=== PATIENT | female | born 1985 ===

== ENCOUNTER 2019-04-25 05:39 | Inpatient (IN) | payer MEDICAID ==
[2019-04-25] MEDS ORDERED: Citric Acid/Sodium Citrate Solution 30 ML Cup PO ONE (05:55)
[2019-04-25] MEDS ORDERED: Sodium Chloride 0.9% 10 ML SDV IV PRN (05:55)
[2019-04-25] MEDS ORDERED: Sodium Chloride 0.9% 10 ML Syringe FLUSH PRN (05:55)
[2019-04-25] MEDS ORDERED: Sodium Chloride 0.9% 2.5 ML Syringe FLUSH PRN (05:55)
[2019-04-25] MEDS ORDERED: ceFAZolin 2 GM in Premix Bag 1 BAG IV ONE (05:55)
[2019-04-25] MEDS ORDERED: Oxytocin/0.9 % Sodium Chloride 30 UNIT/500 ML BAG IV SCH (06:00)
[2019-04-25] MEDS: Lactated Ringers 1,000 ML IV SCH ×3 (06:10→07:33)
[2019-04-25] MEDS ORDERED: Morphine PF 10 MG/10 ML SDV ONE (06:58)
[2019-04-25] MEDS ORDERED: ePHEDrine 50 MG/ML SDV ONE (06:58)
[2019-04-25] MEDS ORDERED: Oxytocin 10 Units/1 ML SDV ONE (06:58)
[2019-04-25] MEDS ORDERED: fentaNYL 100 MCG/2 ML SDV ONE ×2 (06:58→09:25)
--- NOTE | 2019-04-25 07:35 | PCM.PREANE ---
Preanesthetic Assessment - Anesthesia/Transfusion/Family Hx Anesthesia History: Prior Anesthesia Reaction Other Type of Anesthesia Reaction Comment: had a blood clot in her back from the Epidural-took anticoagulants x24 hrs Family History of Anesthesia Reaction: No Transfusion History: Prior Transfusion Without Reaction - Review of Systems General: No Symptoms Pulmonary: No Symptoms Cardiovascular: No Symptoms Gastrointestinal: No Symptoms Neurological: No Symptoms Other: Reports: None - Physical Assessment Height: 5 ft 5 in Weight: 91.626 kg ASA Class: 2 Mental Status: Alert & Oriented x3 Airway Class: Mallampati = 2 (tongue stud) Dentition: Reports: Normal Dentition ROM/Head Extension: Full Lungs: Clear to Auscultation, Normal Respiratory Effort Cardiovascular: Regular Rate, Regular Rhythm - Lab Values: Laboratory Last Values WBC 12.76 K/uL (4.0-11.0) H 04/25/19 06:10 RBC 3.63 M/uL (4.30-5.90) L 04/25/19 06:10 Hgb 11.6 g/dL (12.0-16.0) L 04/25/19 06:10 Hct 34.9 % (36.0-46.0) L 04/25/19 06:10 MCV 96.1 fL (80.0-98.0) 04/25/19 06:10 MCH 32.0 pg (27.0-32.0) 04/25/19 06:10 MCHC 33.2 g/dL (31.0-37.0) 04/25/19 06:10 RDW Std Deviation 47.3 fl (28.0-62.0) 04/25/19 06:10 RDW Coeff of Cleve 14 % (11.0-15.0) 04/25/19 06:10 Plt Count 217 K/uL (150-400) 04/25/19 06:10 MPV 10.60 fL (7.40-12.00) 04/25/19 06:10 Nucleated RBC % 0.0 /100WBC 04/25/19 06:10 Nucleated RBCs # 0 K/uL 04/25/19 06:10 Blood Type O POSITIVE 04/25/19 06:10 Antibody Screen NEGATIVE 04/25/19 06:10 - Allergies Allergies/Adverse Reactions: Allergies Allergy/AdvReac Type Severity Reaction Status Date / Time bee venom protein (honey bee) Allergy Other Verified 08/20/19 07:01 povidone-iodine Allergy Rash Verified 04/21/19 12:55 [From Betadine] soap [From Betadine] Allergy Rash Verified 04/21/19 12:55 - Blood Blood Available: No - Anesthesia Plan Pre-Op Medication Ordered: None - Acknowledgements Anesthesia Type Planned: Spinal Pt an Appropriate Candidate for the Planned Anesthesia: Yes Alternatives and Risks of Anesthesia Discussed w Pt/Guardian: Yes Pt/Guardian Understands and Agrees with Anesthesia Plan: Yes PreAnesthesia Questionnaire Gastrointestinal History: Reports: Other (See Below) Other Gastrointestinal History: heartburn during [employer] History: Reports: Musculoskeletal History: Reports: Fracture Other Musculoskeletal History: hx of fx right ankle and clavicle Psychiatric History: Reports: Anxiety, Depression Other Psychiatric History: no anxiety medication for 2 years Endocrine/Metabolic History: Reports: Obesity/BMI 30+ Hematologic History: Reports: Anemia - Past Surgical History HEENT Surgical History: Reports: Other (See Below) Other HEENT Surgeries/Procedures: hx of facial reconstruction after a dog bite as a child Female Surgical History: Reports: Section Musculoskeletal Surgical History: Reports: ORIF Other Musculoskeletal Surgeries/Procedures:: hx of ORIF right ankle- hardware removed - SUBSTANCE USE Smoking Status *Q: Current Every Day Smoker Tobacco Use Within Last Twelve Months: Cigarettes Recreational Drug Use History: No - HOME MEDS Home Medications: Home Meds Iron Polysaccharides Complex [Ferrex 150] 150 mg PO DAILY 04/21/19 [History] PNV95/Ferrous Fumarate/FA [ Tablet] 1 tab PO DAILY 04/21/19 [History] Calcium Carbonate [Tums] 500 mg PO PRN 04/25/19 [History] Ranitidine HCl [Ranitidine] 04/25/19 [History] - CURRENT (IN HOUSE) MEDS Current Meds: Current Medications Lactated Ringer's (Ringers, Lactated) 1,000 mls @ 500 mls/hr IV BOLUS JOSE Last Admin: 04/25/19 07:25 Dose: 999 mls/hr Oxytocin/Sodium Chloride (Oxytocin 30 Unit/500 Ml-Ns) 30 unit in 500 mls @ 250 mls/hr IV TITRATE JOSE Sodium Chloride (Saline Flush) 10 ml FLUSH ASDIRECTED PRN PRN Reason: Keep Vein Open Sodium Chloride (Saline Flush) 2.5 ml FLUSH ASDIRECTED PRN PRN Reason: Keep Vein Open Sodium Chloride (Normal Saline) 10 ml IV ASDIRECTED PRN PRN Reason: IV Use Discontinued Medications Citric Acid/Sodium Citrate (Bicitra Solution) 30 ml PO ONETIME ONE Stop: 04/25/19 05:56 Ephedrine Sulfate (Ephedrine Sulfate) Confirm Administered Dose 50 mg .ROUTE .STK-MED ONE Stop: 04/25/19 06:59 Fentanyl (Sublimaze) Confirm Administered Dose 100 mcg .ROUTE .STK-MED ONE Stop: 04/25/19 06:59 Cefazolin Sodium/Dextrose 2 gm (/ Premix) 50 mls @ 100 mls/hr IV ONETIME ONE Stop: 04/25/19 06:24 Morphine Sulfate (Duramorph Pf) Confirm Administered Dose 10 mg .ROUTE .STK-MED ONE Stop: 04/25/19 06:59 Oxytocin (Pitocin) Confirm Administered Dose 30 unit .ROUTE .STK-MED ONE Stop: 04/25/19 06:59
[2019-04-25] MEDS ORDERED: ceFAZolin 1 GM Vial ONE (08:07)
[2019-04-25] MEDS ORDERED: Acetaminophen/oxyCODONE 325-5 MG Tab PO PRN ×2 (08:15→09:15)
[2019-04-25] MEDS ORDERED: Nalbuphine 10 MG/1 ML Vial IVPUSH PRN (08:15)
[2019-04-25] MEDS ORDERED: Oxytocin/0.9 % Sodium Chloride 30 UNIT/500 ML BAG ONE (08:33)
[2019-04-25] MEDS ORDERED: Octyl 2-Cyanoacrylate 1 Tube ONE (09:14)
[2019-04-25] MEDS ORDERED: Bisacodyl 10 MG Supp RECTAL PRN (09:15)
[2019-04-25] MEDS ORDERED: Lanolin 100% Cream 7 GM Tube TOP PRN (09:15)
[2019-04-25] MEDS ORDERED: diphenhydrAMINE 50 MG/ML SDV IVPUSH PRN (09:15)
[2019-04-25] MEDS ORDERED: Ondansetron 4 MG/2 ML SDV IVPUSH PRN (09:15)
[2019-04-25] MEDS ORDERED: Lactated Ringers 1,000 ML IV SCH (09:15)
--- NOTE | 2019-04-25 09:20 | PCM.OPNOTE ---
- General Post-Op/Procedure Note Date of Surgery/Procedure: 04/25/19 Operative Procedure(s): Repeat Lower transverse Findings: Live male delivered at 830am , 9/9 weight pending Pre Op Diagnosis: Previous , Desires repeat Post-Op Diagnosis: same Anesthesia Technique: Spinal Primary Surgeon: Alicia Vegas Slurry Tank Operator: Julianna Lara Fluid Replacement, Intraop: 3,100 Output, Urine Amount: 250 EBL in mLs: 500 Complications: None Condition: Good
[2019-04-25] MEDS ORDERED: Ketorolac 30 MG/ML SDV ONE (09:22)
[2019-04-25] MEDS: Ketorolac 30 MG/ML SDV IVPUSH SCH ×3 (09:50→20:56)
--- NOTE | 2019-04-25 10:14 | PCM.POSTAN ---
POST ANESTHESIA ASSESSMENT - MENTAL STATUS Mental Status: Alert, Oriented - VITAL SIGNS Vital Signs: Last Vital Signs Temp 36.3 C 04/25/19 09:30 Pulse 84 04/25/19 10:05 Resp 15 04/25/19 10:05 BP 139/86 04/25/19 10:05 Pulse Ox 96 04/25/19 10:05 - RESPIRATORY Respiratory Status: Respiratory Rate WNL, Airway Patent, O2 Saturation Stable - CARDIOVASCULAR CV Status: Pulse Rate WNL, Blood Pressure Stable - GASTROINTESTINAL GI Status: No Symptoms - PAIN Pain Score: 5 (being treated PRN - patient satisfied at this time) - POST OP HYDRATION Hydration Status: Adequate & Stable
[2019-04-25] MEDS: fentaNYL 100 MCG/2 ML SDV IVPUSH PRN ×2 (12:17→17:09)
[2019-04-25] MEDS: Docusate Sodium 100 MG Cap PO SCH (20:55)
--- NOTE | 2019-04-26 00:20 | OR ---
SURGEON: TAO BOND DATE OF PROCEDURE: 04/25/2019 PREOPERATIVE DIAGNOSIS: A 34-year-old, G4, P2-0-1-2 at 39 weeks, desiring repeat . POSTOPERATIVE DIAGNOSIS: A 34-year-old, G4, P2-0-1-2 at 39 weeks, desiring repeat . PROCEDURE PERFORMED: Repeat Lower segment transverse delivery. ESTIMATED BLOOD LOSS: 500. IV FLUIDS: 3100. URINE OUTPUT: 250. NOTES AND FINDINGS: A live male delivered at 8:30 a.m. scores were 9 and 9. Weight is 3640 g. Very thin lower uterine segment BRIEF HISTORY: She is 39 weeks and 4 days with history of previous delivery, desired a repeat delivery. She was explained the risks, benefits, and alternative procedures. She decided to proceed with . DESCRIPTION OF PROCEDURE: The patient was taken to the operating room where spinal anesthesia was performed without difficulty. She was prepared and draped in the dorsal supine position with a leftward tilt. A Pfannenstiel skin incision was made with the scalpel and carried down to the fascia with the Bovie. The fascia was incised and extended upwards and laterally. The fascia was from the rectus muscle down to the level of the pubic symphysis. The lower uterine segment was identified, which was extremely thin. The Tamir retractor was placed and the lower uterine incision was made and the baby was in cephalic position was delivered without difficulty. The lower uterine segment was then closed with 0 Vicryl in a continuous fashion. Bleeding was noted with some tear in the lower uterine segment. This was apposed again with 2- 0 Vicryl. Hemostasis was noted. Surgicel was placed in the lower uterine segment on the incision. Then, the rectus muscle was then apposed and gutters were cleaned. There was normal uterus and tubes and ovaries that was noted. The Tamir retractor was removed. After the rectus was approximated, the fascia was closed with 0 Vicryl in a continuous fashion. The skin was closed with 3-0 Monocryl on a [place] needle. All instruments were correct x2. The patient tolerated the procedure well and was taken to Labor and Delivery room in stable condition. JOSE / GILLIAN /[id number] MTDD
[2019-04-26] MEDS: Ketorolac 30 MG/ML SDV IVPUSH SCH ×2 (03:54→09:45)
--- NOTE | 2019-04-26 07:46 | PCM.PNPP ---
- General Info Date of Service: 04/26/19 Functional Status: Reports: Pain Controlled, Tolerating Diet, Ambulating, Urinating, Incentive Spirometry - Review of Systems General: Reports: No Symptoms. Denies: Fever, Chills HEENT: Reports: No Symptoms. Denies: Headaches Pulmonary: Reports: No Symptoms. Denies: Shortness of Breath Cardiovascular: Reports: No Symptoms. Denies: Chest Pain, Palpitations Gastrointestinal: Reports: Abdominal Pain (mild incisional pain. ) Genitourinary: Reports: No Symptoms. Denies: Dysuria Musculoskeletal: Reports: No Symptoms Skin: Reports: No Symptoms Neurological: Reports: No Symptoms Psychiatric: Reports: No Symptoms - General Info Date of Service: 04/26/19 - Patient Data Vital Signs - Most Recent: Last Vital Signs Temp 97.6 F 04/26/19 04:00 Pulse 88 04/26/19 06:00 Resp 16 04/26/19 06:00 BP 129/73 04/26/19 04:00 Pulse Ox 96 04/26/19 06:00 Weight - Most Recent: 202 lb I&O - Last 24 Hours: Intake & Output 04/25/19 04/26/19 04/26/19 22:59 06:59 14:59 Intake Total 628 Output Total 700 1500 Balance -72 -1500 Lab Results - Last 24 Hours: Laboratory Results - last 24 hr 04/26/19 Range/Units 06:07 Hgb 9.4 L (12.0-16.0) g/dL Hct 28.7 L (36.0-46.0) % Med Orders - Current: Current Medications Bisacodyl (Dulcolax) 10 mg RECTAL ONETIME PRN PRN Reason: Constipation Diphenhydramine HCl (Benadryl) 25 mg IVPUSH Q6H PRN PRN Reason: Itching or Nausea Docusate Sodium (Colace) 100 mg PO BID JOSE Last Admin: 04/25/19 20:55 Dose: 100 mg Emollient Ointment (Lansinoh Hpa) 0 gm TOP ASDIRECTED PRN PRN Reason: Sore Nipples Last Admin: 04/25/19 22:53 Dose: 1 tube Lactated Ringer's (Ringers, Lactated) 1,000 mls @ 500 mls/hr IV BOLUS JOSE Last Admin: 04/25/19 07:33 Dose: 999 mls/hr Oxytocin/Sodium Chloride (Oxytocin 30 Unit/500 Ml-Ns) 30 unit in 500 mls @ 250 mls/hr IV TITRATE [facility] Lactated Ringer's (Ringers, Lactated) 1,000 mls @ 125 mls/hr IV ASDIRECTED [facility] Last Admin: 04/25/19 11:34 Dose: 125 mls/hr Ibuprofen (Motrin) 800 mg PO Q8H PRN PRN Reason: mild pain or fever Ketorolac Tromethamine (Toradol) 30 mg IVPUSH Q6H [facility] Stop: 04/26/19 09:16 Last Admin: 04/26/19 03:54 Dose: 30 mg Nalbuphine HCl (Nubain) 2.5 mg IVPUSH Q3H PRN PRN Reason: Pruritis Stop: 04/26/19 08:15 Ondansetron HCl (Zofran) 4 mg IVPUSH Q4H PRN PRN Reason: Nausea/Vomiting Oxycodone/Acetaminophen (Percocet 325-5 Mg) 1 tab PO ONETIME PRN PRN Reason: Pain (moderate 4-6) Oxycodone/Acetaminophen (Percocet 325-5 Mg) 1 tab PO Q4H PRN PRN Reason: Pain (moderate 4-6) Last Admin: 04/26/19 05:42 Dose: 1 tab Oxycodone/Acetaminophen (Percocet 325-5 Mg) 2 tab PO Q4H PRN PRN Reason: Pain (moderate 4-6) Sodium Chloride (Saline Flush) 10 ml FLUSH ASDIRECTED PRN PRN Reason: Keep Vein Open Sodium Chloride (Saline Flush) 2.5 ml FLUSH ASDIRECTED PRN PRN Reason: Keep Vein Open Sodium Chloride (Normal Saline) 10 ml IV ASDIRECTED PRN PRN Reason: IV Use Discontinued Medications Cefazolin Sodium (Ancef) Confirm Administered Dose 2 gm .ROUTE .STK-MED ONE Stop: 04/25/19 08:08 Citric Acid/Sodium Citrate (Bicitra Solution) 30 ml PO ONETIME ONE Stop: 04/25/19 05:56 Last Admin: 04/25/19 07:34 Dose: 30 ml Ephedrine Sulfate (Ephedrine Sulfate) Confirm Administered Dose 50 mg .ROUTE .STK-MED ONE Stop: 04/25/19 06:59 Fentanyl (Sublimaze) Confirm Administered Dose 100 mcg .ROUTE .STK-MED ONE Stop: 04/25/19 06:59 Fentanyl (Sublimaze) Confirm Administered Dose 100 mcg .ROUTE .STK-MED ONE Stop: 04/25/19 09:26 Fentanyl (Sublimaze) 50 mcg IVPUSH Q5M PRN PRN Reason: Pain Last Admin: 04/25/19 17:09 Dose: 50 mcg Cefazolin Sodium/Dextrose 2 gm (/ Premix) 50 mls @ 100 mls/hr IV ONETIME ONE Stop: 04/25/19 06:24 Last Admin: 04/25/19 07:38 Dose: 100 mls/hr Oxytocin/Sodium Chloride (Oxytocin 30 Unit/500 Ml-Ns) Confirm Administered Dose 30 unit in 500 mls @ as directed .ROUTE .STK-MED ONE Stop: 04/25/19 08:34 Ketorolac Tromethamine (Toradol) Confirm Administered Dose 30 mg .ROUTE .STK- MED ONE Stop: 04/25/19 09:23 Morphine Sulfate (Duramorph Pf) Confirm Administered Dose 10 mg .ROUTE .STK-MED ONE Stop: 04/25/19 06:59 Octyl Cyanoacrylate (Dermabond Advance) Confirm Administered Dose 1 applic .ROUTE .STK-MED ONE Stop: 04/25/19 09:15 Last Admin: 04/25/19 08:40 Dose: 1 applic Oxytocin (Pitocin) Confirm Administered Dose 30 unit .ROUTE .STK-MED ONE Stop: 04/25/19 06:59 - Interaction Infant Disposition, : [place] in Room with Family Interaction: Unable to Hold Infant at this Time Infant Feeding: Attempted ; Nursed Fair/Poor Support Person: Friend - Recovery Exam Fundal Tone: Firm Fundal Level: 2 Fingerbreadths Below Umbilicus Fundal Placement: Midline Lochia Amount: Scant Lochia Color: Rubra/Red Perineum Description: Intact, Minimal Bruising/Swelling Episiotomy/Laceration: None Bladder Status: Voiding Urinary Elimination: Voided - Exam General: Alert, Oriented HEENT: Pupils Equal Neck: Supple Lungs: Clear to Auscultation, Normal Respiratory Effort Cardiovascular: Regular Rate, Regular Rhythm GI/Abdominal Exam: Normal Bowel Sounds, Soft, Non-Tender, No Organomegaly, No Distention, No Abnormal Bruit, No Mass, Pelvis Stable Extremities: Normal Inspection, Normal Range of Motion, Non-Tender, No Pedal Edema, Normal Capillary Refill Skin: Warm, Dry, Intact Wound/Incisions: Healing Well Neurological: No New Focal Deficit Psy/Mental Status: Alert, Normal Affect, Normal Mood - Problem List Review Problem List Initiated/Reviewed/Updated: Yes - Assessment Assessment:: POD1 s/p repeat LTCS Pain well controlled Tolerating diet fair/poor - supplementing with formula PRN Minimal lochia rubra - Plan Plan:: Regular diet Pain control PRN Incentive spirometry and encourage ambulation Anticipate discharge POD2-3
[2019-04-26] MEDS: Docusate Sodium 100 MG Cap PO SCH ×2 (09:45→21:04)
[2019-04-26] MEDS: Calcium Carbonate 500 MG Tab.Chew PO PRN ×2 (09:45→21:03)
[2019-04-26] MEDS: Acetaminophen/oxyCODONE 325-5 MG Tab PO PRN ×3 (10:27→22:17)
[2019-04-26] MEDS: Ibuprofen 800 MG Tab PO PRN (16:00)
[2019-04-27] MEDS: Ibuprofen 800 MG Tab PO PRN (01:52)
[2019-04-27] MEDS: Acetaminophen/oxyCODONE 325-5 MG Tab PO PRN ×2 (03:36→08:24)
--- NOTE | 2019-04-27 07:45 | PCM.PNPP ---
<Julianna Lara - Last Filed: 04/27/19 07:44> - General Info Date of Service: 04/27/19 Functional Status: Reports: Pain Controlled - Review of Systems General: Reports: No Symptoms. Denies: Fever, Chills HEENT: Reports: No Symptoms. Denies: Headaches Pulmonary: Reports: No Symptoms. Denies: Shortness of Breath Cardiovascular: Reports: No Symptoms. Denies: Chest Pain Gastrointestinal: Reports: Abdominal Pain (mild incisional pain) Genitourinary: Reports: No Symptoms. Denies: Dysuria Musculoskeletal: Reports: No Symptoms Skin: Reports: No Symptoms Neurological: Reports: No Symptoms Psychiatric: Reports: No Symptoms - General Info Date of Service: 04/27/19 - Patient Data Vital Signs - Most Recent: Last Vital Signs Temp 98.5 F 04/27/19 07:17 Pulse 78 04/27/19 07:17 Resp 18 04/27/19 07:17 BP 132/83 04/27/19 07:17 Pulse Ox 99 04/27/19 07:17 Weight - Most Recent: 91.626 kg Med Orders - Current: Current Medications Bisacodyl (Dulcolax) 10 mg RECTAL ONETIME PRN PRN Reason: Constipation Calcium Carbonate/Glycine (Tums) 1,000 mg PO Q2HR PRN PRN Reason: Indigestion Last Admin: 04/26/19 21:03 Dose: 1,000 mg Diphenhydramine HCl (Benadryl) 25 mg IVPUSH Q6H PRN PRN Reason: Itching or Nausea Docusate Sodium (Colace) 100 mg PO BID [facility] Last Admin: 04/26/19 21:04 Dose: 100 mg Emollient Ointment (Lansinoh Hpa) 0 gm TOP ASDIRECTED PRN PRN Reason: Sore Nipples Last Admin: 04/25/19 22:53 Dose: 1 tube Lactated Ringer's (Ringers, Lactated) 1,000 mls @ 500 mls/hr IV BOLUS [facility] Last Admin: 04/25/19 07:33 Dose: 999 mls/hr Oxytocin/Sodium Chloride (Oxytocin 30 Unit/500 Ml-Ns) 30 unit in 500 mls @ 250 mls/hr IV TITRATE [facility] Lactated Ringer's (Ringers, Lactated) 1,000 mls @ 125 mls/hr IV ASDIRECTED JOSE Last Admin: 04/25/19 11:34 Dose: 125 mls/hr Ibuprofen (Motrin) 800 mg PO Q8H PRN PRN Reason: mild pain or fever Last Admin: 04/27/19 01:52 Dose: 800 mg Ondansetron HCl (Zofran) 4 mg IVPUSH Q4H PRN PRN Reason: Nausea/Vomiting Oxycodone/Acetaminophen (Percocet 325-5 Mg) 1 tab PO ONETIME PRN PRN Reason: Pain (moderate 4-6) Oxycodone/Acetaminophen (Percocet 325-5 Mg) 1 tab PO Q4H PRN PRN Reason: Pain (moderate 4-6) Last Admin: 04/26/19 05:42 Dose: 1 tab Oxycodone/Acetaminophen (Percocet 325-5 Mg) 2 tab PO Q4H PRN PRN Reason: Pain (moderate 4-6) Last Admin: 04/27/19 03:36 Dose: 2 tab Sodium Chloride (Saline Flush) 10 ml FLUSH ASDIRECTED PRN PRN Reason: Keep Vein Open Sodium Chloride (Saline Flush) 2.5 ml FLUSH ASDIRECTED PRN PRN Reason: Keep Vein Open Sodium Chloride (Normal Saline) 10 ml IV ASDIRECTED PRN PRN Reason: IV Use Discontinued Medications Cefazolin Sodium (Ancef) Confirm Administered Dose 2 gm .ROUTE .STK-MED ONE Stop: 04/25/19 08:08 Citric Acid/Sodium Citrate (Bicitra Solution) 30 ml PO ONETIME ONE Stop: 04/25/19 05:56 Last Admin: 04/25/19 07:34 Dose: 30 ml Ephedrine Sulfate (Ephedrine Sulfate) Confirm Administered Dose 50 mg .ROUTE .STK-MED ONE Stop: 04/25/19 06:59 Fentanyl (Sublimaze) Confirm Administered Dose 100 mcg .ROUTE .STK-MED ONE Stop: 04/25/19 06:59 Fentanyl (Sublimaze) Confirm Administered Dose 100 mcg .ROUTE .STK-MED ONE Stop: 04/25/19 09:26 Fentanyl (Sublimaze) 50 mcg IVPUSH Q5M PRN PRN Reason: Pain Last Admin: 04/25/19 17:09 Dose: 50 mcg Cefazolin Sodium/Dextrose 2 gm (/ Premix) 50 mls @ 100 mls/hr IV ONETIME ONE Stop: 04/25/19 06:24 Last Admin: 04/25/19 07:38 Dose: 100 mls/hr Oxytocin/Sodium Chloride (Oxytocin 30 Unit/500 Ml-Ns) Confirm Administered Dose 30 unit in 500 mls @ as directed .ROUTE .STK-MED ONE Stop: 04/25/19 08:34 Ketorolac Tromethamine (Toradol) 30 mg IVPUSH Q6H JOSE Stop: 04/26/19 09:16 Last Admin: 04/26/19 09:45 Dose: 30 mg Ketorolac Tromethamine (Toradol) Confirm Administered Dose 30 mg .ROUTE .STK- MED ONE Stop: 04/25/19 09:23 Morphine Sulfate (Duramorph Pf) Confirm Administered Dose 10 mg .ROUTE .STK-MED ONE Stop: 04/25/19 06:59 Nalbuphine HCl (Nubain) 2.5 mg IVPUSH Q3H PRN PRN Reason: Pruritis Stop: 04/26/19 08:15 Octyl Cyanoacrylate (Dermabond Advance) Confirm Administered Dose 1 applic .ROUTE .STK-MED ONE Stop: 04/25/19 09:15 Last Admin: 04/25/19 08:40 Dose: 1 applic Oxytocin (Pitocin) Confirm Administered Dose 30 unit .ROUTE .STK-MED ONE Stop: 04/25/19 06:59 - Infant Interaction Disposition, : in Room with Family Interaction: Unable to Hold at this Time Infant Feeding: Attempted ; Nursed Fair/Poor Support Person: Friend - Recovery Exam Fundal Tone: Firm Fundal Level: 2 Fingerbreadths Below Umbilicus Fundal Placement: Midline Lochia Amount: Scant Lochia Color: Rubra/Red Perineum Description: Intact, Minimal Bruising/Swelling Episiotomy/Laceration: None Bladder Status: Voiding Urinary Elimination: Voided - Exam General: Alert, Oriented HEENT: Pupils Equal Neck: Supple Lungs: Clear to Auscultation, Normal Respiratory Effort Cardiovascular: Regular Rate, Regular Rhythm GI/Abdominal Exam: Normal Bowel Sounds, Soft, Non-Tender, No Organomegaly, No Distention, No Abnormal Bruit, No Mass, Pelvis Stable Extremities: Normal Inspection, Normal Range of Motion, Non-Tender, No Pedal Edema, Normal Capillary Refill Skin: Warm, Dry, Intact Wound/Incisions: Healing Well, No Drainage Neurological: No New Focal Deficit Psy/Mental Status: Alert, Normal Affect, Normal Mood - Problem List Review Problem List Initiated/Reviewed/Updated: Yes - Assessment Assessment:: POD2 s/p repeat LTCS Pain well controlled Tolerating diet fair/poor - supplementing with formula PRN Minimal lochia rubra - Plan Plan:: Regular diet Pain control PRN Incentive spirometry and encourage ambulation Anticipate discharge today <Alicia Vegas - Last Filed: 04/27/19 08:50> - Patient Data Vital Signs - Most Recent: Last Vital Signs Temp 36.9 C 04/27/19 07:17 Pulse 78 04/27/19 07:17 Resp 18 04/27/19 07:17 BP 132/83 04/27/19 07:17 Pulse Ox 99 04/27/19 07:17 Med Orders - Current: Current Medications Bisacodyl (Dulcolax) 10 mg RECTAL ONETIME PRN PRN Reason: Constipation Calcium Carbonate/Glycine (Tums) 1,000 mg PO Q2HR PRN PRN Reason: Indigestion Last Admin: 04/26/19 21:03 Dose: 1,000 mg Diphenhydramine HCl (Benadryl) 25 mg IVPUSH Q6H PRN PRN Reason: Itching or Nausea Docusate Sodium (Colace) 100 mg PO BID [facility] Last Admin: 04/27/19 08:24 Dose: 100 mg Emollient Ointment (Lansinoh Hpa) 0 gm TOP ASDIRECTED PRN PRN Reason: Sore Nipples Last Admin: 04/25/19 22:53 Dose: 1 tube Lactated Ringer's (Ringers, Lactated) 1,000 mls @ 500 mls/hr IV BOLUS [facility] Last Admin: 04/25/19 07:33 Dose: 999 mls/hr Oxytocin/Sodium Chloride (Oxytocin 30 Unit/500 Ml-Ns) 30 unit in 500 mls @ 250 mls/hr IV TITRATE [facility] Lactated Ringer's (Ringers, Lactated) 1,000 mls @ 125 mls/hr IV ASDIRECTED [facility] Last Admin: 04/25/19 11:34 Dose: 125 mls/hr Ibuprofen (Motrin) 800 mg PO Q8H PRN PRN Reason: mild pain or fever Last Admin: 04/27/19 01:52 Dose: 800 mg Ondansetron HCl (Zofran) 4 mg IVPUSH Q4H PRN PRN Reason: Nausea/Vomiting Oxycodone/Acetaminophen (Percocet 325-5 Mg) 1 tab PO ONETIME PRN PRN Reason: Pain (moderate 4-6) Oxycodone/Acetaminophen (Percocet 325-5 Mg) 1 tab PO Q4H PRN PRN Reason: Pain (moderate 4-6) Last Admin: 04/26/19 05:42 Dose: 1 tab Oxycodone/Acetaminophen (Percocet 325-5 Mg) 2 tab PO Q4H PRN PRN Reason: Pain (moderate 4-6) Last Admin: 04/27/19 08:24 Dose: 2 tab Sodium Chloride (Saline Flush) 10 ml FLUSH ASDIRECTED PRN PRN Reason: Keep Vein Open Sodium Chloride (Saline Flush) 2.5 ml FLUSH ASDIRECTED PRN PRN Reason: Keep Vein Open Sodium Chloride (Normal Saline) 10 ml IV ASDIRECTED PRN PRN Reason: IV Use Discontinued Medications Cefazolin Sodium (Ancef) Confirm Administered Dose 2 gm .ROUTE .STK-MED ONE Stop: 04/25/19 08:08 Citric Acid/Sodium Citrate (Bicitra Solution) 30 ml PO ONETIME ONE Stop: 04/25/19 05:56 Last Admin: 04/25/19 07:34 Dose: 30 ml Ephedrine Sulfate (Ephedrine Sulfate) Confirm Administered Dose 50 mg .ROUTE .STK-MED ONE Stop: 04/25/19 06:59 Fentanyl (Sublimaze) Confirm Administered Dose 100 mcg .ROUTE .STK-MED ONE Stop: 04/25/19 06:59 Fentanyl (Sublimaze) Confirm Administered Dose 100 mcg .ROUTE .STK-MED ONE Stop: 04/25/19 09:26 Fentanyl (Sublimaze) 50 mcg IVPUSH Q5M PRN PRN Reason: Pain Last Admin: 04/25/19 17:09 Dose: 50 mcg Cefazolin Sodium/Dextrose 2 gm (/ Premix) 50 mls @ 100 mls/hr IV ONETIME ONE Stop: 04/25/19 06:24 Last Admin: 04/25/19 07:38 Dose: 100 mls/hr Oxytocin/Sodium Chloride (Oxytocin 30 Unit/500 Ml-Ns) Confirm Administered Dose 30 unit in 500 mls @ as directed .ROUTE .STK-MED ONE Stop: 04/25/19 08:34 Ketorolac Tromethamine (Toradol) 30 mg IVPUSH Q6H [facility] Stop: 04/26/19 09:16 Last Admin: 04/26/19 09:45 Dose: 30 mg Ketorolac Tromethamine (Toradol) Confirm Administered Dose 30 mg .ROUTE .STK- MED ONE Stop: 04/25/19 09:23 Morphine Sulfate (Duramorph Pf) Confirm Administered Dose 10 mg .ROUTE .STK-MED ONE Stop: 04/25/19 06:59 Nalbuphine HCl (Nubain) 2.5 mg IVPUSH Q3H PRN PRN Reason: Pruritis Stop: 04/26/19 08:15 Octyl Cyanoacrylate (Dermabond Advance) Confirm Administered Dose 1 applic .ROUTE .STK-MED ONE Stop: 04/25/19 09:15 Last Admin: 04/25/19 08:40 Dose: 1 applic Oxytocin (Pitocin) Confirm Administered Dose 30 unit .ROUTE .STK-MED ONE Stop: 04/25/19 06:59 - Problem List & Annotations (1) delivery delivered SNOMED Code(s): 340409672 Code(s): O82 - ENCOUNTER FOR DELIVERY WITHOUT INDICATION Status: Acute Current Visit: Yes - My Orders Last 24 Hours: My Active Orders 04/26/19 07:51 Code Status [Resuscitation Status] Routine 04/26/19 09:35 Calcium Carbonate [Tums] 1,000 mg PO Q2HR PRN 04/26/19 Lunch Regular Diet [DIET] - Assessment Assessment:: Agree with assessment - Plan Plan:: Want to be discharged today
[2019-04-27] MEDS: Docusate Sodium 100 MG Cap PO SCH (08:24)
== END 2019-04-27 10:30 | disposition home or self-care (01) | DRG 788 ==
LOC: MW.OB 05:39
PROVIDERS: ADMIT Obstetrics & Gynecology; ATTEND Obstetrics & Gynecology
PROC: 10D00Z1 Extraction of Products of Conception, Low, Open Approach (ICD-10-PCS; principal; 2019-04-25)
DX: O34.211 Maternal care for low transverse scar from previous cesarean delivery (principal); O99.02 Anemia complicating childbirth; D64.9 Anemia, unspecified; O99.214 Obesity complicating childbirth; E66.9 Obesity, unspecified; Z37.0 Single live birth; Z3A.39 39 weeks gestation of pregnancy
CPT/HCPCS: 01961; 36415; 59025; 85014; 85018; 85027; 86850; 86900; 86901; A9270-GY; J0690; J1885; J2270; J2590; J3010; J7120